=== PATIENT | female | born 1950 | race Two or more races ===

== ENCOUNTER 2024-09-05 05:40 | Day surgery (SDC) | payer MEDICARE, SELFPAY ==
--- NOTE | 2024-09-02 08:01 | EKG_ITS ---
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
[2024-09-02 10:43] VITALS: BMI 27.9
[2024-09-02 12:44] LABS: Basophils # (Auto) 0.0 Thou/mm3 (0.0-0.2); Basophils % (Auto) 0 % (0-2.5); Eosinophils # (Auto) 0.3 Thou/mm3 (0.0-0.5); Eosinophils % (Auto) 4 % (0-10); Hematocrit 34.7 % (36.0-46.0); Hemoglobin 11.5 g/dL (12.0-16.0); Immature Granulocytes Auto 0.03 Thou/mm3 (0.00-0.00); Lymphocytes # (Auto) 1.8 Thou/mm3 (1.0-4.8); Lymphocytes % (Auto) 22 % (10-50); Mean Corpuscular HGB Conc 33.1 g/dl (31.0-37.0); Mean Corpuscular Hemoglobin 28.0 pg (25.0-35.0); Mean Corpuscular Volume 84 fL (80-100); Monocytes # (Auto) 0.6 Thou/mm3 (0.0-0.8); Monocytes % (Auto) 7 % (0-12); Neutrophils # (Auto) 5.4 Thou/mm3 (1.8-7.7); Neutrophils % (Auto) 66 % (37-80); Nucleated Red Blood Cell # 0.00 Thou/mm3 (0.00-0.00); Nucleated Red Blood Cell % 0 /100 WBC (0); Platelet Count 335 Thou/mm3 (140-440); RDW Standard Deviation 44.2 fL (36.4-46.3); Red Blood Count 4.11 Miln/mm3 (4.00-5.20); White Blood Count 8.2 Thou/mm3 (3.6-11.0)
[2024-09-02 12:52] LABS: Alanine Aminotransferase 18 U/L (10-49); Albumin, Serum 4.6 gm/dL (3.4-4.8); Albumin/Globulin Ratio 1.6 (1.2-2.2); Alkaline Phosphatase 73 U/L (46-116); Anion Gap 11 (7-16); Aspartate Amino Transferase 26 U/L (0-34); BUN/Creatinine Ratio 15 Ratio (12-20); Bilirubin,Total 0.6 mg/dL (0.3-1.2); Blood Urea Nitrogen 17 mg/dL (9-23); Calcium 9.8 mg/dL (8.3-10.6); Calcium (Corrected) 9.8 mg/dL (8.5-10.1); Carbon Dioxide 24.3 mMol/L (20.0-31.0); Chloride 106 mMol/L (98-107); Creatinine (Component) 1.1 mg/dL (0.6-1.3); Estimated Creatinine Clearance 38.7 mL/min (>60); Globulin 2.9 gm/dL (2.3-3.5); Glucose 105 mg/dL (74-106); Osmolality,Calculated 282 (275-295); Potassium 4.3 mMol/L (3.4-5.1); Sodium 141 mMol/L (136-145); Total Protein 7.5 gm/dL (5.7-8.2); eGFR 52 See Note
[2024-09-05] VITALS (8 sets, daily range): BP systolic 103–141; BP diastolic 53–64; PULSE 47–59; RESP 12–20; TEMP 36.4–36.7; O2SAT 97–100; BMI 27.9
--- NOTE | 2024-09-05 08:32 | ESOP_ITS ---
Date of Procedure 09/05/24 Pre Op Diagnosis Symptomatic cholelithiasis Right upper quadrant abdominal wall soft tissue mass Post Op Diagnosis Cholelithiasis with cholecystitis Right upper quadrant abdominal wall soft tissue mass Procedure Laparoscopic cholecystectomy Excision of right upper quadrant abdominal wall subcutaneous tissue soft tissue mass Findings Mildly distended gallbladder with gallstones and chronic cholecystitis. Anterior surface of the liver was smooth without any nodules or any lesions. 5 cm lipomatous mass in the subcutaneous soft tissue of right upper quadrant Procedure Description Patient was brought into the operating room in supine position. After administration of general endotracheal anesthesia abdomen was prepped and draped in standard surgical manner. A Veress needle was inserted through the umbilicus and pneumoperitoneum was obtained up to 15 mmHg. The Veress needle was then removed, a 5 mm infraumbilical incision was made and the 5mm trocar was inserted. Laparoscopic camera was placed. Under direct visualization a laparoscopic camera a 10 mm trocar was placed in subxiphoid and two 5 mm trocars placed in right upper quadrant. The gallbladder was identified and was noted to be moderately distended. It was retracted cephalad and laterally. Dissection started near the infundibulum of gallbladder where cystic duct and gallbladder junction clearly identified. The cystic duct was circumferentially dissected off the peritoneum and surrounding inflammatory tissue. The critical view of safety was clearly demonstrated. Cystic duct was then divided between 2 endoclips proximally and one distally. The cystic artery was similarly dissected and divided. The gallbladder was then from the liver bed using electrocautery. The gallbladder was then placed inside an Endo Catch and removed from the abdomen utilizing subxiphoid trocar site. The area was copiously and thoroughly washed and irrigated, all the fluid was suctioned and the suction fluid returned clear. Hemostasis achieved using electrocautery. Endoclips noted be in place and intact without any bleeding or any leakage. Hemostasis was adequate and satisfactory. The subxiphoid trocar sites fascial defect was closed with 0 Vicryl using Endo Closure device. Instruments and trocars removed, pneumoperitoneum was evacuated and the incisions closed with 4- 0 Monocryl in subcuticular fashion. Patient was noted to have a right upper quadrant abdominal wall soft tissue mass. The epigastric trocar site was extended laterally and the subcutaneous soft tissue mass was circumferentially dissected out surrounding tissue and excised. The mass was measuring to be approximately 5 cm in diameter, lipomatous in nature. Wound was washed and irrigated. Soft tissue reapproximated with interrupted sutures using 2-0 Vicryl. Incision was closed with 4-0 Monocryl in subcuticular fashion. Dermabond and pressure dressings applied. Instrument needle and sponge counts were all reported to be correct X2. Patient tolerated the procedure well, was extubated, breathing spontaneously and without difficulty and was transferred to postanesthesia care in stable condition. Anesthesia GETA and local Pathology / specimen Other (Gallbladder and contents. Right upper quadrant abdominal wall soft tissue mass) Estimated Blood Loss 10 Condition Stable Disposition PACU Surgeon Joe Blackwood MD Surgical Staff Operation Date: 09/05/24 07:30 Case Staff Anesthesiologist: Chance Goncalves RN First Assistant: Tammie Bueno
--- NOTE | 2024-09-05 08:38 | SUR.PHASEI ---
0838: Pt. wakes to name then drifts back to sleep, vitals stable, breathing unlabored, no complaint of pain or nausea, x3 dermabond sites to ABD CDI, pressure bandage at top right ABD CDI, no active bleed noted, report received from MD Goncalves and Jonathan ALEJANDRA.
[2024-09-05] MEDS: HYDROcodone/APAP 5/325 TABLET 1 TAB PO (09:21)
--- NOTE | 2024-09-05 09:36 | SUR.PHASEII ---
0936: Pt. AAOx4, vitals stable, breathing unlabored, no complaint of pain or nausea, dressing to ABD CDI, no active bleed noted, pt. tolerated sips of soda well, pt. ambulated to wheelchair with steady gait and no assist, no complications. Gave discharge instructions to the pt. and her ride in [place], per pt. request, both verbalized understanding and had no further questions. Pt. left with all personal belongings.
== END 2024-09-05 09:36 | disposition home or self-care (01) ==
PROVIDERS: PCP Physician Assistant; Referring Provider Surgery; Visit Provider Surgery
PROC: 0FT44ZZ Resection of Gallbladder, Percutaneous Endoscopic Approach (ICD-10-PCS; CPT 47562; principal; 2024-09-05 07:30)
PROC: (CPT 47562; 2024-09-05 07:30)
DX: K80.10 Calculus of gallbladder with chronic cholecystitis without obstruction (principal); D17.1 Benign lipomatous neoplasm of skin and subcutaneous tissue of trunk; I10 Essential (primary) hypertension; E03.9 Hypothyroidism, unspecified; Z01.810 Encounter for preprocedural cardiovascular examination; Z79.899 Other long term (current) drug therapy; Z79.890 Hormone replacement therapy
CPT/HCPCS: 47562; 22903; 36415; 80053; 85025; 93005; A4217; A4649; J0131; J0461; J0694; J1100; J2250; J2371; J2405; J2704; J3010; J3490; A9270